=== PATIENT | female | born 1985 | race Caucasian/White ===

== ENCOUNTER 2017-04-03 22:22 | Emergency (ER) | payer SELFPAY ==
[~2017-04-03] VITALS: Ht 157.5 cm; Wt 53.8 kg
[2017-04-04] MEDS ORDERED: HYDROcodone/APAP 5/325 TABLET ONE (00:18)
[2017-04-04 00:21] VITALS: BP 116/65
[2017-04-04] MEDS ORDERED: HYDROcodone/APAP 5/325 TABLET PO ONE (00:30)
== END 2017-04-04 01:00 | disposition home or self-care (01) ==
LOC: ED 23:21
DX: G43.019 Migraine without aura, intractable, without status migrainosus (principal); K04.7 Periapical abscess without sinus; K08.89 Other specified disorders of teeth and supporting structures; Z72.9 Problem related to lifestyle, unspecified
CPT/HCPCS: 99283